=== PATIENT | male | born 1990 | race African-American/Black ===

== ENCOUNTER 2018-04-29 15:36 | Emergency (ER) | payer SELFPAY ==
[2018-04-29] MEDS ORDERED: DEXAMETHASONE 10 MG/ML VIAL ONE (16:37)
[2018-04-29] MEDS ORDERED: HYDROCOD 2.5mg-ACETAMIN 108mg/5mL Soln ONE (16:38)
[2018-04-29] MEDS ORDERED: PEN G BENZ LA 1.2MU/2ML SYRINGE IM ONE (16:38)
--- NOTE | 2018-04-29 16:42 | EDPHYS ---
Physician Documentation [facility] Name: Juan Pablo Bell Age: 27 yrs Sex: Male : 1990 Arrival Date: 04/29/2018 Time: 15:40 Bed 23 Private MD: None, None ED Physician Ernie Cleveland HPI: 04/29 16:03 This 27 yrs old Black Male presents to ER via Ambulatory with complaints of Sore Throat.snw 16:03 The patient presents with sore throat, dysphagia, of both solids and liquids. The snw patient describes throat pain as raw, scratchy. Onset: The symptoms/episode began/occurred suddenly, 3 day(s) ago. Severity of symptoms: At their worst the symptoms were moderate. Associated signs and symptoms: Pertinent positives: fever, flu-like symptoms, headache, Sore throat. It is unknown whether or not the patient has had similar symptoms in the past. It is unknown whether or not the patient has recently seen a physician. Historical: - Allergies: 15:53 No Known Allergies; aj - Home Meds: 15:53 Proventil Inhl [Active]; aj - PMHx: 15:53 Pneumonia; aj - PSHx: 15:53 None; aj - Immunization history:: Adult Immunizations up to date. - Social history:: Smoking status: Patient/guardian denies using tobacco. - Ebola Screening: : Patient negative for fever greater than or equal to 101.5 degrees Fahrenheit, and additional compatible Ebola Virus Disease symptoms Patient denies exposure to infectious person Patient denies travel to an Ebola-affected area in the 21 days before illness onset No symptoms or risks identified at this time. ROS: 16:02 Eyes: Negative for injury, pain, redness, and discharge. snw 16:02 Neck: Negative for injury, pain, and swelling, Cardiovascular: Negative for chest pain, palpitations, and edema, Respiratory: Negative for shortness of breath, cough, wheezing, and pleuritic chest pain, Abdomen/GI: Negative for abdominal pain, nausea, vomiting, diarrhea, and constipation, Back: Negative for injury and pain, : Negative for injury, bleeding, discharge, and swelling, MS/Extremity: Negative for injury and deformity, Skin: Negative for injury, rash, and discoloration. 16:02 Psych: Negative for depression, anxiety, suicide ideation, homicidal ideation, and hallucinations. 16:02 Constitutional: Positive for body aches, malaise. 16:02 ENT: Positive for sore throat. 16:02 Neuro: Positive for headache. Exam: 15:58 Constitutional: This is a well developed, well nourished patient who is awake, alert, snw and in no acute distress. Head/Face: Normocephalic, atraumatic. Eyes: Pupils equal round and reactive to light, extra-ocular motions intact. Lids and lashes normal. Conjunctiva and sclera are non-icteric and not injected. Cornea within normal limits. Periorbital areas with no swelling, redness, or edema. Neck: Trachea midline, no thyromegaly or masses palpated, and no cervical lymphadenopathy. Supple, full range of motion without nuchal rigidity, or vertebral point tenderness. No Meningismus. Chest/axilla: Normal chest wall appearance and motion. Nontender with no deformity. No lesions are appreciated. Cardiovascular: Regular rate and rhythm with a normal S1 and S2. No gallops, murmurs, or rubs. Normal PMI, no JVD. No pulse deficits. Respiratory: Lungs have equal breath sounds bilaterally, clear to auscultation and percussion. No rales, rhonchi or wheezes noted. No increased work of breathing, no retractions or nasal flaring. Abdomen/GI: Soft, non-tender, with normal bowel sounds. No distension or tympany. No guarding or rebound. No evidence of tenderness throughout. Back: No spinal tenderness. No costovertebral tenderness. Full range of motion. Skin: Warm, dry with normal turgor. Normal color with no rashes, no lesions, and no evidence of cellulitis. MS/ Extremity: Pulses equal, no cyanosis. Neurovascular intact. Full, normal range of motion. Neuro: Awake and alert, GCS 15, oriented to person, place, time, and situation. Cranial nerves II-XII grossly intact. Motor strength 5/5 in all extremities. Sensory grossly intact. Cerebellar exam normal. Normal gait. Psych: Awake, alert, with orientation to person, place and time. Behavior, mood, and affect are within normal limits. 15:58 ENT: External ear(s): are unremarkable, Ear canal(s): are normal, TM's: are normal, Nose: is normal, Mouth: is normal, Posterior pharynx: Tonsils: bilaterally enlarged, with erythema, Voice: is normal. Vital Signs: 15:53 BP 127 / 80; Pulse 81; Resp 16; Temp 98.5; Pulse Ox 99% on R/A; Weight 80.29 kg; Height aj 5 ft. 10 in. (177.80 cm); 16:23 BP 128 / 80; Pulse 85; Resp 18; Pulse Ox 99% ; tl3 17:21 BP 128 / 80; Pulse 76; Resp 18; Pulse Ox 100% ; tl3 15:53 Body Mass Index 25.40 (80.29 kg, 177.80 cm) aj MDM: 15:58 Patient medically screened. león 16:43 Data reviewed: vital signs, nurses notes. Data interpreted: Pulse oximetry: on room air snw is 99 %. Interpretation: normal. Counseling: I had a detailed discussion with the patient and/or guardian regarding: the historical points, exam findings, and any diagnostic results supporting the discharge/admit diagnosis, the presence of at least one elevated blood pressure reading (>120/80) during this emergency department visit, lab results, the need for outpatient follow up, to return to the emergency department if symptoms worsen or persist or if there are any questions or concerns that arise at home. Special discussion: I have referred the patient to see his PCP for further evaluation of high blood pressure. Based on the history and exam findings, there is no indication for further emergent testing or inpatient evaluation. I discussed with the patient/guardian the need to see the primary care provider for further evaluation of the symptoms. 04/29 15:48 Order name: Strep; Complete Time: 16:25 snw Administered Medications: 16:40 Drug: Bicillin L-A 2.4 million units Route: IM; Site: right vastus lateralis; tl3 17:23 Follow up: Response: No adverse reaction tl3 16:40 Drug: Lortab Liquid 10 ml Route: PO; tl3 17:23 Follow up: Response: No adverse reaction tl3 16:40 Drug: Decadron - Dexamethasone 10 mg {Note: given orally.} Route: IVP; Site: Other; tl3 17:23 Follow up: Response: No adverse reaction tl3 Disposition: 04/30 15:20 Co-signature as Attending Physician, Ernie Cleveland MD I agree with the assessment and león plan of care. Disposition: 04/29/18 16:41 Discharged to Home. Impression: Streptococcal pharyngitis. - Condition is Stable. - Discharge Instructions: Fever, Adult, Strep Throat, Rehydration, Adult. - Prescriptions for promethazine 25 mg Oral Tablet - take 1 tablet by ORAL route every 6 hours As needed; 20 tablet. - Work release form, Medication Reconciliation Form, Thank You Letter, Antibiotic Education, Prescription Opioid Use form. - Follow up: Private Physician; When: 2 - 3 days; Reason: Recheck today's complaints, Continuance of care, Re-evaluation by your physician. Follow up: Emergency Department; When: As needed; Reason: Worsening of condition. - Problem is new. - Symptoms are unchanged. Signatures: Dispatcher [employer] EDAmbar Tena RN Ernie Santiago MD MD cha Therrien, Shelly, SPA ASSISTANT MANAGER-C SPA ASSISTANT MANAGER-Csnw Darleen Barrera RN RN tl3 Corrections: (The following items were deleted from the chart) 04/29 17:24 16:41 04/29/2018 16:41 Discharged to Home. Impression: Streptococcal pharyngitis. tl3 Condition is Stable. Forms are Medication Reconciliation Form, Thank You Letter, Antibiotic Education, Prescription Opioid Use. Follow up: Private Physician; When: 2 - 3 days; Reason: Recheck today's complaints, Continuance of care, Re-evaluation by your physician. Follow up: Emergency Department; When: As needed; Reason: Worsening of condition. Problem is new. Symptoms are unchanged. snw
--- NOTE | 2018-04-29 16:42 | ER ---
Nurse's Notes [facility] Name: Juan Pablo Bell Age: 27 yrs Sex: Male : 1990 Arrival Date: 04/29/2018 Time: 15:40 Bed 23 Private MD: None, None Diagnosis: Streptococcal pharyngitis Presentation: 04/29 15:52 Presenting complaint: Patient states: Sore throat and fever since last night. Tonsils aj swollen bilaterally with green patchy exudate noted bilaterally. Voice is clear. Transition of care: patient was not received from another setting of care. Onset of symptoms was April 29, 2018. Risk Assessment: Do you want to hurt yourself or someone else? Patient reports no desire to harm self or others. Initial Sepsis Screen: Does the patient meet any 2 criteria? No. Patient's initial sepsis screen is negative. Does the patient have a suspected source of infection? No. Patient's initial sepsis screen is negative. Care prior to arrival: None. 15:52 Method Of Arrival: Ambulatory 15:52 Acuity: ROB 4 aj Triage Assessment: 15:53 General: Appears in no apparent distress. uncomfortable, Behavior is calm, cooperative, aj appropriate for age. Pain:. EENT: Throat has patchy exudate has enlarged tonsils with gag reflex present, Reports pain when swallowing. Neuro: Level of Consciousness is awake, alert, obeys commands, Oriented to person, place, time, situation, Appropriate for age. Respiratory: Airway is patent Respiratory effort is even, unlabored, Respiratory pattern is regular, symmetrical. Derm: Skin is intact, is healthy with good turgor, Skin is pink, warm \T\ dry. normal. Historical: - Allergies: 15:53 No Known Allergies; aj - Home Meds: 15:53 Proventil Inhl [Active]; aj - PMHx: 15:53 Pneumonia; aj - PSHx: 15:53 None; aj - Immunization history:: Adult Immunizations up to date. - Social history:: Smoking status: Patient/guardian denies using tobacco. - Ebola Screening: : Patient negative for fever greater than or equal to 101.5 degrees Fahrenheit, and additional compatible Ebola Virus Disease symptoms Patient denies exposure to infectious person Patient denies travel to an Ebola-affected area in the 21 days before illness onset No symptoms or risks identified at this time. Screenin:23 Abuse screen: Denies threats or abuse. Nutritional screening: No deficits noted. tl3 Tuberculosis screening: No symptoms or risk factors identified. Fall Risk None identified. Assessment: 16:21 General: Appears uncomfortable, slender, well groomed, well developed, well nourished, tl3 Behavior is calm, cooperative, appropriate for age. Pain: Complains of pain in sore throat. Neuro: Level of Consciousness is awake, alert, obeys commands, Oriented to person, place, time, situation, Appropriate for age. Cardiovascular: Patient's skin is warm and dry. Respiratory: Airway is patent Respiratory effort is even, unlabored, Respiratory pattern is regular, symmetrical. GI: No signs and/or symptoms were reported involving the gastrointestinal system. : No signs and/or symptoms were reported regarding the genitourinary system. EENT: Reports sore throat for two days. Derm: No signs and/or symptoms reported regarding the dermatologic system. Musculoskeletal: No signs and/or symptoms reported regarding the musculoskeletal system. 17:21 Reassessment: Patient appears in no apparent distress at this time. No changes from tl3 previously documented assessment. Patient and/or family updated on plan of care and expected duration. Pain level reassessed. Patient is alert, oriented x 3, equal unlabored respirations, skin warm/dry/pink. pt is feeling better after pain meds. 17:24 Respiratory: Breath sounds are clear bilaterally. tl3 Vital Signs: 15:53 BP 127 / 80; Pulse 81; Resp 16; Temp 98.5; Pulse Ox 99% on R/A; Weight 80.29 kg; Height aj 5 ft. 10 in. (177.80 cm); 16:23 BP 128 / 80; Pulse 85; Resp 18; Pulse Ox 99% ; tl3 17:21 BP 128 / 80; Pulse 76; Resp 18; Pulse Ox 100% ; tl3 15:53 Body Mass Index 25.40 (80.29 kg, 177.80 cm) ED Course: 15:40 Patient arrived in ED. mr 15:40 None, None is Private Physician. mr 15:41 Lydia Ventura FNP-C [facility]. snw 15:44 Ernie Cleveland MD is Attending Physician. sn 15:53 Triage completed. aj 15:53 Arm band placed on left wrist. Patient placed in an exam room. preet 16:17 Darleen Barrera, RN is Primary Nurse. tl3 16:23 Patient has correct armband on for positive identification. tl3 16:23 No provider procedures requiring assistance completed. Patient did not have IV access tl3 during this emergency room visit. Administered Medications: 16:40 Drug: Bicillin L-A 2.4 million units Route: IM; Site: right vastus lateralis; tl3 17:23 Follow up: Response: No adverse reaction tl3 16:40 Drug: Lortab Liquid 10 ml Route: PO; tl3 17:23 Follow up: Response: No adverse reaction tl3 16:40 Drug: Decadron - Dexamethasone 10 mg {Note: given orally.} Route: IVP; Site: Other; tl3 17:23 Follow up: Response: No adverse reaction tl3 Outcome: 16:41 Discharge ordered by . snjuan 17:22 Discharged to tl3 17:22 Condition: good 17:22 Discharge instructions given to patient, Instructed on discharge instructions, follow up and referral plans. medication usage, Demonstrated understanding of instructions, follow-up care, medications, Prescriptions given X 1. 17:24 Patient left the ED. tl3 Signatures: Ambar Nowak, RN RN Lydia Antunez, MANPOWER DEVELOPMENT ADVISOR-C MANPOWER DEVELOPMENT ADVISOR-Shelbi Walker Darleen Barrera, RN RN tl3
[2018-04-29 17:28] VITALS: TEMP 98.5
[2018-04-29 17:30] VITALS: BP 128/80
[2018-04-29 17:31] VITALS: O2SAT 100
== END 2018-04-29 17:24 | disposition home or self-care (01) ==
LOC: ER 15:36
DX: J02.0 Streptococcal pharyngitis (principal)
CPT/HCPCS: 87081; 96372; 96374; 99283; J0561; J1100

== ENCOUNTER 2024-06-12 07:20 | Emergency (ER) | payer BC, SELFPAY ==
[2024-06-12] MEDS ORDERED: dexAMETHasone 10 MG/ML VIAL ONE (07:42)
--- NOTE | 2024-06-12 08:42 | ER ---
Nurse's Notes [facility] Name: Juan Pablo Bell Age: 33 yrs Sex: Male : 1990 Arrival Date: 06/12/2024 Time: 07:20 Bed 14 Private MD: Diagnosis: Streptococcal pharyngitis Presentation: 06/12 07:32 Risk Assessment: Do you want to hurt yourself or someone else? Patient reports no mb9 desire to harm self or others. 07:33 Chief complaint: Patient states: Sore throat began yesterday. No fever. Coronavirus ll1 screen: Client denies travel out of the [place] in the last 14 days. fatigue, sore throat, Client presents with at least one sign or symptom that may indicate coronavirus-19. Standard/surgical mask placed on the client. Ebola Screen: Patient denies travel to an Ebola-affected area in the 21 days before illness onset. Initial Sepsis Screen: Does the patient meet any 2 criteria? No. Patient's initial sepsis screen is negative. Does the patient have a suspected source of infection? No. Patient's initial sepsis screen is negative. Onset of symptoms was June 11, 2024. 07:33 Method Of Arrival: Ambulatory ll1 07:33 Acuity: ROB 4 ll1 Historical: - Allergies: 07:27 No Known Allergies; ll1 - PMHx: 07:27 Pneumonia; ll1 - PSHx: 07:35 None; ll1 - Immunization history:: Adult Immunizations up to date. - Infectious Disease History:: Denies. - Social history:: Smoking status: Patient denies any tobacco usage or history of. Screenin:32 [facility] ED Fall Risk Assessment (Adult) History of falling in the last 3 months, mb9 including since admission No falls in past 3 months (0 pts) Confusion or Disorientation No (0 pts) Intoxicated or Sedated No (0 pts) Impaired Gait No (0 pts) Mobility Assist Device Used No (0 pt) Altered Elimination No (0 pt) Score/Fall Risk Level 0 - 2 = Low Risk Oriented to surroundings, Maintained a safe environment, Educated pt \T\ family on fall prevention, incl call for assistance when getting out of bed. Abuse screen: Denies threats or abuse. Nutritional screening: No deficits noted. Tuberculosis screening: No symptoms or risk factors identified. Assessment: 07:48 General: Appears in no apparent distress. Behavior is calm, cooperative. Pain: mb9 Complains of pain in throat Pain does not radiate. Pain currently is 7 out of 10 on a pain scale. Quality of pain is described as throbbing, Pain began suddenly, Is continuous. Neuro: Shelton Agitation-Sedation Scale (RASS): 0 - Alert and Calm Level of Consciousness is awake, alert, obeys commands, Oriented to person, place, time, situation, Appropriate for age. Cardiovascular: Patient's skin is warm and dry. Respiratory: Airway is patent Respiratory effort is even, unlabored, Respiratory pattern is regular, symmetrical, Breath sounds are clear bilaterally. GI: No signs and/or symptoms were reported involving the gastrointestinal system. : No signs and/or symptoms were reported regarding the genitourinary system. EENT: Throat is reddened Reports pain in throat. Derm: Skin is pink, warm \T\ dry. Musculoskeletal: Range of motion: intact in all extremities. 08:30 Reassessment: No changes from previously documented assessment. Patient and/or family mb9 updated on plan of care and expected duration. Pain level reassessed. Patient is alert, oriented x 3, equal unlabored respirations, skin warm/dry/pink. Vital Signs: 07:33 BP 129 / 78; Pulse 87; Resp 16; Temp 97.6; Pulse Ox 97% on R/A; Weight 88.45 kg; Height ll1 5 ft. 10 in. ; Pain 9/10; 08:31 Pulse 80; Resp 18; Pulse Ox 100% ; mb9 07:33 Body Mass Index 27.98 (88.45 kg, 177.8 cm) ll1 07:33 Pain Scale: Adult ll1 ED Course: 07:24 Patient arrived in ED. im 07:27 Arm band placed on Patient placed in an exam room, on a stretcher. ll1 07:28 Guy Turner DO is Attending Physician. ms3 07:29 Karen Duran RN is Primary Nurse. mb9 07:33 Placed in gown. Bed in low position. Call light in reach. Side rails up X 1. Provided mb9 Education on: press call light if needing anything. Client placed on continuous cardiac and pulse oximetry monitoring. NIBP monitoring applied. 07:35 Triage completed. ll1 07:48 Strep Sent. mb9 07:49 No provider procedures requiring assistance completed. mb9 07:49 Patient did not have IV access during this emergency room visit. mb9 08:42 Chris Gale DO is Referral Physician. ms3 Administered Medications: 07:47 Drug: Dexamethasone IM 10 mg IM once Route: IM; Site: right deltoid; mb9 08:31 Follow up: Response: No adverse reaction mb9 Medication: 07:49 VIS not applicable for this client. mb9 Outcome: 08:42 Discharge ordered by MD. ms3 08:47 Discharged to home ambulatory, mb9 08:47 Condition: stable 08:47 Discharge instructions given to patient, Instructed on discharge instructions, follow up and referral plans. Demonstrated understanding of instructions, follow-up care, medications, Prescriptions given X 1, 08:47 Patient left the ED. mb9 Signatures: Milena Eli RN RN ll1 Guy Turner DO DO ms3 Karen Duran RN RN mb9 Anjana Rodriguez im
--- NOTE | 2024-06-12 08:42 | EDPHYS ---
Physician Documentation [facility] Name: Juan Pablo Bell Age: 33 yrs Sex: Male : 1990 Arrival Date: 06/12/2024 Time: 07:20 Bed 14 Private MD: ED Physician Guy Turner HPI: 06/12 10:43 This 33 yrs old Black Male presents to ER via Ambulatory with complaints of Sore Throat.ms3 10:43 33-year-old male with past medical history of pneumonia presents to the emergency ms3 department for sore throat that has been ongoing for 2 days. Patient states he noted white patches in his throat yesterday. Patient states the discomfort is a 9/10 and worse with swallowing or talking. Patient denies cough, congestion, fever. Historical: - Allergies: 07:27 No Known Allergies; ll1 - PMHx: 07:27 Pneumonia; ll1 - PSHx: 07:35 None; ll1 - Immunization history:: Adult Immunizations up to date. - Infectious Disease History:: Denies. - Social history:: Smoking status: Patient denies any tobacco usage or history of. ROS: 10:43 Constitutional: Negative for fever, and chills. Neck: Negative for injury, pain, and ms3 swelling, Cardiovascular: Negative for chest pain, and palpitations. Respiratory: Negative for shortness of breath, cough, wheezing, and pleuritic chest pain, Abdomen/GI: Negative for abdominal pain, nausea, vomiting, diarrhea, and constipation, 10:43 Skin: Negative for injury, rash, and discoloration, 10:43 ENT: Positive for sore throat, Exam: 10:43 Constitutional: This is a well developed, well nourished patient who is awake, alert, ms3 and in no acute distress. 10:43 Cardiovascular: Regular rate and rhythm with a normal S1 and S2. No gallops, murmurs, or rubs. Normal PMI, no JVD. No pulse deficits. Respiratory: Lungs have equal breath sounds bilaterally, clear to auscultation and percussion. No rales, rhonchi or wheezes noted. No increased work of breathing, no retractions or nasal flaring. Abdomen/GI: Soft, non-tender, with normal bowel sounds. No distension or tympany. No guarding or rebound. No evidence of tenderness throughout. 10:43 ENT: Posterior pharynx: Tonsils: bilaterally enlarged, with erythema, with exudate, Uvula: normal, peritonsillar mass, is not appreciated, pooling of secretions, is not appreciated, Vital Signs: 07:33 BP 129 / 78; Pulse 87; Resp 16; Temp 97.6; Pulse Ox 97% on R/A; Weight 88.45 kg; Height ll1 5 ft. 10 in. ; Pain 9/10; 08:31 Pulse 80; Resp 18; Pulse Ox 100% ; mb9 07:33 Body Mass Index 27.98 (88.45 kg, 177.8 cm) ll1 07:33 Pain Scale: Adult ll1 MDM: 07:45 Patient medically screened. ms3 10:43 Differential diagnosis: tasha-ferguson virus, pharyngitis, viral syndrome. Data reviewed: ms3 vital signs, nurses notes, lab test result(s), and as a result, I will discharge patient. I considered the following discharge prescriptions or medication management in the emergency department Medications were administered in the Emergency Department. See MAR. Counseling: I had a detailed discussion with the patient and/or guardian regarding the historical points, exam findings, and any diagnostic results supporting the discharge/admit diagnosis, lab results, the need for outpatient follow up, to return to the emergency department if symptoms worsen or persist or if there are any questions or concerns that arise at home. Special discussion: I discussed with the patient/guardian in detail that at this point there is no indication for admission to the hospital. It is understood, however, that if the symptoms persist or worsen the patient needs to return immediately for re-evaluation. ED course: Discussed positive strep results with patient. Patient to follow-up with Dr. Gale in 2 to 3 days. Patient understands and agrees with plan. All questions were answered. Patient given prescription for amoxicillin. On reevaluation patient is alert and oriented x 4, no apparent distress, nontoxic-appearing, speaking full sentences. 06/12 07:37 Order name: Strep; Complete Time: 08:25 ms3 Administered Medications: 07:47 Drug: Dexamethasone IM 10 mg IM once Route: IM; Site: right deltoid; mb9 08:31 Follow up: Response: No adverse reaction mb9 Disposition Summary: 06/12/24 08:42 Discharge Ordered Notes: Location: Home ms3 Condition: Stable ms3 Diagnosis - Streptococcal pharyngitis ms3 Followup: ms3 - With: Chris Gale DO - When: 2 - 3 days - Reason: Recheck today's complaints Discharge Instructions: - Strep Throat, Adult ms3 - Discharge Summary Sheet mb9 Forms: - Medication Reconciliation Form ms3 - Antibiotic Education ms3 - Prescription Opioid Use ms3 - Patient Portal Instructions ms3 - Leadership Thank You Letter ms3 - Work release form mb9 Prescriptions: - Amoxicillin 500 mg Oral capsule - take 1 capsule ORAL route every 12 hours for 10 days; 20 tablet; Refills: 0, ms3 Product Selection Permitted Signatures: Dispatcher [employer] EDMS Milena Eli RN RN ll1 Guy Turner DO DO ms3 Karen Duran RN RN mb9 Corrections: (The following items were deleted from the chart) 07:37 07:37 Group A Streptococcus Rapid Sc+[id number] ordered. EDMS EDMS 07:53 07:37 MONO SCREEN PROFILE+[id number].LAB.BRZ ordered. EDMS EDMS
[2024-06-12 08:52] VITALS: BP 129/78; TEMP 97.6
[2024-06-12 08:53] VITALS: O2SAT 100
== END 2024-06-12 08:47 | disposition home or self-care (01) ==
LOC: ER 07:20
DX: J02.0 Streptococcal pharyngitis (principal)
CPT/HCPCS: 87081; 96372; 99284; J1100